=== PATIENT | male | born 1990 | race Hispanic/Latino ===

== ENCOUNTER 2021-09-15 09:10 | Emergency (ER) | payer BC ==
[2021-09-15 21:35] LABS: SARS-CoV-2 PCR by NAA DETECTED (NotDetected)
== END 2021-09-15 11:30 | disposition home or self-care (01) ==
LOC: BURERS 09:10
DX: R05.9 Cough, unspecified (principal); R50.9 Fever, unspecified; Z20.822 Contact with and (suspected) exposure to COVID-19
CPT/HCPCS: 99283; U0003; U0005